=== PATIENT | female | born 1985 | race African-American/Black ===

== ENCOUNTER → 2017-03-26 | Outpatient (CLI) | payer OTHER ==
--- NOTE | 2017-03-26 15:25 | NM ---
EXAMINATION TYPE: NM bone scan whole body DATE OF EXAM: 03/26/2017 COMPARISON: Chest radiograph dated 04/17/2015 and thoracic as well as lumbar radiographs of 5. HISTORY: Fibromyalgia with pain in the chest, shoulders and lower back. Prior left lower extremity fr acture 7 years ago. Delayed whole-body scanning was performed following the injection of 26.4 mCi Tc 99m MDP. Images acq uired 3.25 hours post injection. FINDINGS: Focal radiotracer uptake is seen within the left tarsal bones. No other suspicious localized radiotra cer uptake is appreciated to suggest neoplastic or localized inflammatory process. Symmetric mild rad iotracer accumulation is seen within the knees, femoral acetabular joints, and glenohumeral joints wh ich may relate to early arthropathy. IMPRESSION: 1. Focal radiotracer uptake within the left tarsal bones which may relate to early arthropathy althou gh fracture or osseous lesion are possible and correlation with left foot radiographs are recommended . 2. Mild symmetric uptake within the femoral acetabular joints, glenohumeral joints and knees which ma y relate to early mild arthropathy.
[2017-03-26 15:54] LABS: CH 32.8; HCT 43.6 % (34.0-46.0); HDW 2.21; HGB 14.1 gm/dL (11.4-16.0); MCH 32.4 pg (25.0-35.0); MCHC 32.4 g/dL (31.0-37.0); MCV 99.9 fL (80.0-100.0); RBC 4.36 m/uL (3.80-5.40); RDW 12.4 % (11.5-15.5); WBC 7.9 k/uL (3.8-10.6)
[2017-03-26 16:15] LABS: ALT 36 U/L (9-52); AST 17 U/L (14-36); Alkaline Phosphatase 89 U/L (38-126); Anion Gap 9 mmol/L; Blood Urea Nitrogen 9 mg/dL (7-17); C Reactive Protein 7.7 mg/L (<10.0); Calcium 9.6 mg/dL (8.4-10.2); Carbon Dioxide 22 mmol/L (22-30); Chloride 108 mmol/L (98-107); Glucose 110 mg/dL (74-99); Non-African American GFR(MDRD) >60 (>60 ml/min/1.73 sqM); Sodium 139 mmol/L (137-145); Total Bilirubin 0.7 mg/dL (0.2-1.3); Total Protein 6.8 g/dL (6.3-8.2)
[2017-03-26 16:16] LABS: Rheumatoid Factor, Qnt <9 IU/mL (<12)
[2017-03-26 18:36] LABS: Erythrocyte Sedimentation Rate 8 mm/hr (0-20)
[2017-03-27 03:43] LABS: ANA w/Reflex to Titer NEGATIVE (NEGATIVE); Cyclic Citrull Pep IgG Unit <0.5 U/mL; Cyclic Citrullinated Pep IgG NEGATIVE (NEGATIVE)
== END | disposition home or self-care (01) ==
LOC: RADNMMAIN 11:00
PROVIDERS: ATTEND Physical Medicine & Rehabilitation
DX: R94.8 Abnormal results of function studies of other organs and systems (principal); M79.7 Fibromyalgia; M13.0 Polyarthritis, unspecified
CPT/HCPCS: 80053; 85652; 84443; 85027; 86140; 86431; 86038; 86200; 78306; 36415; A9503

== ENCOUNTER 2018-03-14 22:35 | Observation (INO) | payer OTHER ==
[2018-03-14] MEDS ORDERED: SODIUM CHLORIDE 0.9% 1,000 ML IV STA (22:50)
[2018-03-14 23:04] LABS: Basophils % (A) 0 %; Eosinophils # (A) 0.3 k/uL (0-0.7); Eosinophils % (A) 2 %; HCT 40.9 % (34.0-46.0); HGB 13.5 gm/dL (11.4-16.0); Lymphocytes # (A) 1.3 k/uL (1.0-4.8); Lymphocytes % (A) 10 %; MCH 32.1 pg (25.0-35.0); MCV 97.4 fL (80.0-100.0); Mean Platelet Volume 7.9; Monocytes # (A) 0.9 k/uL (0-1.0); Monocytes % (A) 7 %; Neutrophils # (A) 10.1 k/uL (1.3-7.7); Neutrophils % (A) 79 %; Platelet Count 208 k/uL (150-450); RDW 11.6 % (11.5-15.5); WBC 12.8 k/uL (3.8-10.6)
[2018-03-14] MEDS ORDERED: KETOROLAC 30 MG/ML 1 ML VIAL IVP STA (23:13)
[2018-03-14] MEDS ORDERED: ONDANSETRON 4 MG/2 ML VIAL IVP STA (23:13)
[2018-03-14 23:15] LABS: Albumin 3.8 g/dL (3.5-5.0); Calcium 9.5 mg/dL (8.4-10.2); Potassium 4.1 mmol/L (3.5-5.1); Total Bilirubin 0.9 mg/dL (0.2-1.3); Total Protein 6.9 g/dL (6.3-8.2)
[2018-03-15] MEDS ORDERED: SODIUM CHLORIDE 0.9% 1,000 ML IV STA (00:12)
[2018-03-15 00:14] LABS: Appearance,Urine Cloudy (Clear); Bacteria,Urine Rare /hpf; Bilirubin,Urine Negative (Negative); Blood,Urine Negative (Negative); Color,Urine Yellow; Glucose,Urine (UA) Negative (Negative); Ketones,Urine Negative (Negative); Leukocyte Esterase,Urine Small (Negative); Mucus,Urine Rare /hpf; Nitrite,Urine Negative (Negative); PH, Urine 5.5 (5.0-8.0); Protein,Urine Negative (Negative); RBC,Urine 2 /hpf (0-5); Specific Gravity,Urine 1.006 (1.001-1.035); Squamous Epithelial Cell,Urine 4 /hpf (0-4); Urobilinogen,Urine <2.0 mg/dL (<2.0); WBC,Urine 5 /hpf (0-5)
--- NOTE | 2018-03-15 01:06 | XR ---
EXAMINATION TYPE: XR abdomen 2V DATE OF EXAM: 03/15/2018 COMPARISON: 02/25/2014 HISTORY: Right upper quadrant pain TECHNIQUE: 3 views FINDINGS: Bowel gas pattern is normal. There is no sign of intestinal obstruction or pneumoperitoneum . Fecal pattern is normal. There are no pathologic calcifications. IMPRESSION: Nonacute abdomen. No change.
[2018-03-15] MEDS ORDERED: KETOROLAC 30 MG/ML 1 ML VIAL IM STA (01:15)
[2018-03-15] MEDS ORDERED: MORPHINE SULFATE 4 MG/ML SYRINGE IVP STA (01:26)
[2018-03-15] MEDS ORDERED: NALOXONE 0.4 MG/ML 1 ML VIAL IV PRN (01:40)
[2018-03-15] MEDS ORDERED: ONDANSETRON 4 MG/2 ML VIAL IVP PRN (01:40)
[2018-03-15] MEDS ORDERED: MORPHINE SULFATE 4 MG/ML SYRINGE IV PRN (01:40)
--- NOTE | 2018-03-15 01:56 | ED ---
General Adult HPI - General Source: patient, RN notes reviewed Mode of arrival: wheelchair Limitations: no limitations <Sae Eng - Last Filed: 03/15/18 01:47> <Blayne Sinha - Last Filed: 03/24/18 08:13> - General Chief complaint: Abdominal Pain Stated complaint: Lightheaded, Abdominal Pain Time Seen by Provider: 03/14/18 22:40 - History of Present Illness Initial comments: 32-year-old female presents to the emergency department for a chief complaint of left lower quadrant pain 2 days. Patient states she was seen at [facility] yesterday for this. She states she had a CAT scan done and was told she had gallstones and diverticulitis. Patient states pain has worsened somewhat today. She states she just had a normal bowel movement today without any blood. Patient denies any fevers or chills. Patient states the pain as a sharp constant pain in the left lower quadrant. Patient denies pain in that upper abdomen or chest. Patient states she has vomited 5 times today and is unable to keep down water. She states she has been able to keep down ice chips. She states she tried to eat some chicken broth today as well and did keep that down. Patient denies any pain or burning with urination. Patient denies any possibility of or concern for STD.Patient has no other complaints at this time including shortness of breath, chest pain, headache, or visual changes. (Sae Eng) - Related Data Previous Rx's Medication Instructions Recorded Ciprofloxacin HCl [Cipro] 500 mg PO Q12HR #10 tablet 03/16/18 metroNIDAZOLE [Flagyl] 500 mg PO BID #10 tab 03/16/18 Allergies Allergy/AdvReac Type Severity Reaction Status Date / Time Penicillins Allergy Anaphylaxis Verified 03/15/18 11:57 Review of Systems ROS Other: All systems not noted in ROS Statement are negative. <Sae Eng - Last Filed: 03/15/18 01:47> ROS Other: All systems not noted in ROS Statement are negative. <Blayne Sinha - Last Filed: 03/24/18 08:13> ROS Statement: Those systems with pertinent positive or pertinent negative responses have been documented in the HPI. Past Medical History Past Medical History: Asthma, Fibromyalgia History of Any Multi-Drug Resistant Organisms: None Reported Past Surgical History: No Surgical Hx Reported Past Psychological History: No Psychological Hx Reported Smoking Status: Current every day smoker Past Alcohol Use History: None Reported Past Drug Use History: Marijuana <Velasquez,Sae P - Last Filed: 03/15/18 01:47> - Past Family History Mother Additional Family Medical History / Comment(s): Kidney stones <MarysabinaBlayne - Last Filed: 03/24/18 08:13> General Exam Limitations: no limitations General appearance: alert, in no apparent distress Head exam: Present: atraumatic, normocephalic, normal inspection Eye exam: Present: normal appearance, PERRL, EOMI. Absent: scleral icterus, conjunctival injection, periorbital swelling, periorbital tenderness ENT exam: Present: normal exam, normal oropharynx, mucous membranes moist, TM's normal bilaterally, normal external ear exam Neck exam: Present: normal inspection, full ROM. Absent: tenderness, meningismus, lymphadenopathy Respiratory exam: Present: normal lung sounds bilaterally, respiratory distress. Absent: wheezes, rales, rhonchi, stridor Cardiovascular Exam: Present: regular rate, normal rhythm, normal heart sounds. Absent: systolic murmur, diastolic murmur, rubs, gallop, clicks GI/Abdominal exam: Present: soft, tenderness (Patient has left lower quadrant tenderness with guarding. No right lower quadrant tenderness or left or right upper quadrant tenderness. No epigastric tenderness.), guarding (Mild guarding in left lower quadrant), normal bowel sounds. Absent: distended, rebound, rigid Extremities exam: Present: full ROM (Patient moving all extremities without difficulty) Neurological exam: Present: alert, oriented X3, CN II-XII intact Psychiatric exam: Present: normal affect, normal mood, anxious <Sae Eng - Last Filed: 03/15/18 01:47> Vital Signs 03/14/18 03/15/18 03/15/18 22:38 00:34 01:51 Temperature 98.5 F 97.6 F Pulse Rate 90 65 72 Respiratory 18 18 17 Rate Blood Pressure 118/63 126/60 118/71 O2 Sat by Pulse 98 98 99 Oximetry 03/15/18 02:50 Temperature Pulse Rate Respiratory 18 Rate Blood Pressure O2 Sat by Pulse Oximetry Medical Decision Making - Lab Data Result diagrams: 03/14/18 22:59 03/14/18 22:59 <Sae Eng - Last Filed: 03/15/18 01:47> - Lab Data Result diagrams: 03/16/18 07:00 03/16/18 07:00 <Blayne Sinha - Last Filed: 03/24/18 08:13> - Medical Decision Making 32-year-old female presents to the emergency department for a chief complaint of left lower quadrant pain 2 days. Patient states she was seen at [facility] yesterday and diagnosed with diverticulitis and gallstones. Patient states pain worsened somewhat today. On exam patient has left lower quadrant tenderness with mild guarding. No abdominal tenderness noted otherwise. CT results were faxed from [facility] and impression read "inflammatory changes around the descending colon with diverticula. This is likely related to acute diverticulitis with mild free fluid in the paracolic gutter and also in the pelvis. Numerous gallstones noted." X-ray was obtained today to exclude any free air in the abdomen and results show a nonacute abdomen with no sign of obstruction or pneumoperitoneum. Patient does have a white count of 12.8. ESR 37 and CRP 73. Creatinine 1.4. Past baseline shows a creatinine at 0.70 which is consistent with acute kidney injury. Patient will be admitted to observation for IV fluids and IV antibiotics as she states she is unable to keep down liquids. Patient was given 2 L in the emergency department and started on Flagyl and Levaquin. (Sae Eng) I saw this patient in conjunction with the physician library media assistant. I performed independent history and physical exam. Agree with case management. (Blayne Sinha) - Lab Data Lab Results 03/14/18 03/14/18 03/14/18 Range/Units 22:59 22:59 23:33 WBC 12.8 H (3.8-10.6) k/uL RBC 4.20 (3.80-5.40) m/uL Hgb 13.5 (11.4-16.0) gm/dL Hct 40.9 (34.0-46.0) % MCV 97.4 (80.0-100.0) fL MCH 32.1 (25.0-35.0) pg MCHC 33.0 (31.0-37.0) g/dL RDW 11.6 (11.5-15.5) % Plt Count 208 (150-450) k/uL Neutrophils % 79 % Lymphocytes % 10 % Monocytes % 7 % Eosinophils % 2 % Basophils % 0 % Neutrophils # 10.1 H (1.3-7.7) k/uL Lymphocytes # 1.3 (1.0-4.8) k/uL Monocytes # 0.9 (0-1.0) k/uL Eosinophils # 0.3 (0-0.7) k/uL Basophils # 0.0 (0-0.2) k/uL ESR (0-20) mm/hr Sodium 139 (137-145) mmol/L Potassium 4.1 (3.5-5.1) mmol/L Chloride 106 (98-107) mmol/L Carbon Dioxide 25 (22-30) mmol/L Anion Gap 8 mmol/L BUN 13 (7-17) mg/dL Creatinine 1.40 H (0.52-1.04) mg/dL Est GFR (CKD-EPI)AfAm 58 (>60 ml/min/1.73 sqM) Est GFR (CKD-EPI)NonAf 50 (>60 ml/min/1.73 sqM) Glucose 113 H (74-99) mg/dL Calcium 9.5 (8.4-10.2) mg/dL Total Bilirubin 0.9 (0.2-1.3) mg/dL AST 47 H (14-36) U/L ALT 52 (9-52) U/L Alkaline Phosphatase 97 (38-126) U/L C-Reactive Protein (<10.0) mg/L Total Protein 6.9 (6.3-8.2) g/dL Albumin 3.8 (3.5-5.0) g/dL Amylase 54 (30-110) U/L Lipase 60 (23-300) U/L Urine Color Urine Appearance (Clear) Urine pH (5.0-8.0) Ur Specific [place] (1.001-1.035) Urine Protein (Negative) Urine Glucose (UA) (Negative) Urine Ketones (Negative) Urine Blood (Negative) Urine Nitrite (Negative) Urine Bilirubin (Negative) Urine Urobilinogen (<2.0) mg/dL Ur Leukocyte Esterase (Negative) Urine RBC (0-5) /hpf Urine WBC (0-5) /hpf Ur Squamous Epith Cells (0-4) /hpf Urine Bacteria (None) /hpf Urine Mucus (None) /hpf Urine HCG, Qual Not Detected (Not Detectd) 03/14/18 03/14/18 03/15/18 Range/Units 23:33 23:48 00:21 WBC (3.8-10.6) k/uL RBC (3.80-5.40) m/uL Hgb (11.4-16.0) gm/dL Hct (34.0-46.0) % MCV (80.0-100.0) fL MCH (25.0-35.0) pg MCHC (31.0-37.0) g/dL RDW (11.5-15.5) % Plt Count (150-450) k/uL Neutrophils % % Lymphocytes % % Monocytes % % Eosinophils % % Basophils % % Neutrophils # (1.3-7.7) k/uL Lymphocytes # (1.0-4.8) k/uL Monocytes # (0-1.0) k/uL Eosinophils # (0-0.7) k/uL Basophils # (0-0.2) k/uL ESR 37 H (0-20) mm/hr Sodium (137-145) mmol/L Potassium (3.5-5.1) mmol/L Chloride (98-107) mmol/L Carbon Dioxide (22-30) mmol/L Anion Gap mmol/L BUN (7-17) mg/dL Creatinine (0.52-1.04) mg/dL Est GFR (CKD-EPI)AfAm (>60 ml/min/1.73 sqM) Est GFR (CKD-EPI)NonAf (>60 ml/min/1.73 sqM) Glucose (74-99) mg/dL Calcium (8.4-10.2) mg/dL Total Bilirubin (0.2-1.3) mg/dL AST (14-36) U/L ALT (9-52) U/L Alkaline Phosphatase (38-126) U/L C-Reactive Protein 73.7 H (<10.0) mg/L Total Protein (6.3-8.2) g/dL Albumin (3.5-5.0) g/dL Amylase (30-110) U/L Lipase (23-300) U/L Urine Color Yellow Urine Appearance Cloudy H (Clear) Urine pH 5.5 (5.0-8.0) Ur Specific [place] 1.006 (1.001-1.035) Urine Protein Negative (Negative) Urine Glucose (UA) Negative (Negative) Urine Ketones Negative (Negative) Urine Blood Negative (Negative) Urine Nitrite Negative (Negative) Urine Bilirubin Negative (Negative) Urine Urobilinogen <2.0 (<2.0) mg/dL Ur Leukocyte Esterase Small H (Negative) Urine RBC 2 (0-5) /hpf Urine WBC 5 (0-5) /hpf Ur Squamous Epith Cells 4 (0-4) /hpf Urine Bacteria Rare H (None) /hpf Urine Mucus Rare H (None) /hpf Urine HCG, Qual (Not Detectd) Disposition Time of Disposition: 01:56 <Sae Eng - Last Filed: 03/15/18 01:47> <Blayne Sinha - Last Filed: 03/24/18 08:13> Clinical Impression: Diverticulitis Disposition: ADMITTED IP TO THIS HOSP Condition: Poor
[2018-03-15] MEDS: SODIUM CHLORIDE 0.9% 1,000 ML IV SCH ×3 (01:58→20:59)
[2018-03-15] MEDS: metroNIDAZOLE-NS PMX 500 MG in SALINE 1 100ML.BAG IVPB SCH ×3 (02:01→18:19)
[2018-03-15 04:32] VITALS: RESP 16
[2018-03-15 05:18] VITALS: BMI 35.5
[2018-03-15] MEDS ORDERED: IPRATROPIUM-ALBUTEROL 3 ML NEB INHALATION PRN (06:23)
--- NOTE | 2018-03-15 06:43 | P.HPIM ---
History of Present Illness H&P Date: 03/15/18 Chief Complaint: Abd pain , nausea vomiting 32 year old female with history of asthma and kidney stones. patient presented with 2 day history of left lower quadrant abd pain, described as sharp constant pain, non radiating , associated with repeated vomiting and unable to keep anything down. The pain has worsened today to 10/10 in severity and associated with chills. patient could not keep her prescribed medications down (was on ABx and bentyl) Patient was seen at a different facility yesterday where she was evaluated thoroughly including an abd CT, which suggested acute diverticulitis and gall stones. she has history of kidney stone in the past. CT from [facility] showed inflammatory changes in the descending colon with diverticuli. in the ED today , abd xray was unremarkable otherwise, labs suggested ELVIRA, and leukocytosis. Patient has history of mild intermittent asthma, denies any headache chest pain trouble breathing denies any GI bleeding, patient had regular bowel movements with no blood. Denies any vaginal discharge. Denies any burning upon urination denies any hematuria. Denies any focal neurologic deficits. Review of Systems Pertinent positives as noted in HPI. All other systems were reviewed and are negative Past Medical History Past Medical History: Asthma, Fibromyalgia Additional Past Medical History / Comment(s): kidney stone History of Any Multi-Drug Resistant Organisms: None Reported Past Surgical History: No Surgical Hx Reported Past Psychological History: ADD/ADHD Smoking Status: Never smoker Past Alcohol Use History: None Reported Past Drug Use History: Marijuana - Past Family History Mother Additional Family Medical History / Comment(s): Kidney stones Medications and Allergies Home Medications Medication Instructions Recorded Confirmed Type Hydrocodone/Acetaminophen [[place] 1 tab PO Q4H PRN 12/27/13 03/15/18 History 10-325] Ibuprofen [Motrin] 800 mg PO Q6HR PRN 04/17/15 03/15/18 History Albuterol Inhaler [Ventolin 1 - 2 puff INHALATION RT-Q6H PRN 10/16/15 03/15/18 History Inhaler] Sulfamethox-Tmp 800-160Mg [Bactrim 1 each PO Q12HR #20 tab 10/16/15 03/15/18 Rx Ds] methylPREDNISolone [Medrol Dose 4 mg PO DIRECTED #1 pack 10/16/15 03/15/18 Rx Pack] Allergies Allergy/AdvReac Type Severity Reaction Status Date / Time Penicillins Allergy Anaphylaxis Verified 03/15/18 02:53 Physical Exam Vitals: Vital Signs Temp Pulse Pulse Resp BP BP Pulse Ox 03/15/18 05:08 97.8 F 75 16 103/70 97 03/15/18 04:29 97.8 F 65 16 103/70 98 03/15/18 03:40 97.2 F L 85 18 127/66 97 03/15/18 02:50 18 03/15/18 01:51 97.6 F 72 17 118/71 99 03/15/18 00:34 65 18 126/60 98 03/14/18 22:38 98.5 F 90 18 118/63 98 Intake and Output 03/14/18 03/14/18 03/15/18 14:59 22:59 06:59 Other: # Voids 1 Weight 99.79 kg 99.79 kg Constitutional: No acute distress, conversant, pleasant, obese Eyes: Anicteric sclerae, moist conjunctiva, no lid-lag Pupils equal round reactive to light ENMT: NC/AT Oropharynx clear, no erythema, exudates Neck: Supple, FROM, no masses, or JVD No carotid bruits No thyromegaly Lungs: Clear to auscultation Clear to percussion Normal respiratory effort, no accessory muscle use Cardiovascular: Heart regular in rate and rhythm, No murmurs, gallops, or rubs No peripheral edema Abdominal: Soft, tenderness to palpation over the left lower quadrant with voluntary guarding, positive rebound tenderness, tenderness to percussion , no rigidity Abdomen moving with respiration Normoactive bowel sounds No hepatomegaly, No splenomegaly No palpable mass No abdominal wall hernia noted Skin: Normal temperature, tone, texture, turgor No induration No subcutaneous nodules No rash, lesions No ulcers Extremities: No digital cyanosis No clubbing Pedal pulses intact and symmetrical Radial pulses intact and symmetrical No calf tenderness Psychiatric: Alert and oriented to person, place and time Appropriate affect fair judgment Neuro Muscles Strength 5/5 in all 4 extremities Sensation to light touch grossly present throughout Cranial nerves II-XII grossly intact No focal sensory deficits Lymphatics: no palpable cervical or supraclavicular , or inguinal lymph nodes Results CBC & Chem 7: 03/14/18 22:59 03/14/18 22:59 Labs: Abnormal Lab Results - Last 24 Hours (Table) 03/14/18 03/14/18 03/14/18 Range/Units 22:59 22:59 23:33 WBC 12.8 H (3.8-10.6) k/uL Neutrophils # 10.1 H (1.3-7.7) k/uL ESR (0-20) mm/hr Creatinine 1.40 H (0.52-1.04) mg/dL Glucose 113 H (74-99) mg/dL AST 47 H (14-36) U/L C-Reactive Protein (<10.0) mg/L Urine Appearance Cloudy H (Clear) Ur Leukocyte Esterase Small H (Negative) Urine Bacteria Rare H (None) /hpf Urine Mucus Rare H (None) /hpf 03/14/18 03/15/18 Range/Units 23:48 00:21 WBC (3.8-10.6) k/uL Neutrophils # (1.3-7.7) k/uL ESR 37 H (0-20) mm/hr Creatinine (0.52-1.04) mg/dL Glucose (74-99) mg/dL AST (14-36) U/L C-Reactive Protein 73.7 H (<10.0) mg/L Urine Appearance (Clear) Ur Leukocyte Esterase (Negative) Urine Bacteria (None) /hpf Urine Mucus (None) /hpf Thrombosis Risk Factor Assmnt - Choose All That Apply Any of the Below Risk Factors Present?: No Other Risk Factors: No Thrombosis Risk Factor Assessment Level: Very Low Risk Assessment and Plan Assessment: 32-year-old female with history of mild intermittent asthma kidney stones, admitted under observation with anticipated length of stay of less than 48 hours due to acute diverticulitis failed outpatient therapy associated with intractable nausea and vomiting Plan: Acute diverticulitis failed outpatient therapy intractable nausea and vomiting IV antibiotics IV fluid hydration Pain control with morphine Nothing by mouth, okay for sips of water and popsicles Acute kidney injury, most likely secondary to prerenal ATN from dehydration and poor by mouth intake Avoid nephrotoxic meds Discontinue NSAIDs IV fluid hydration Monitor renal function and urine output Mild intermittent asthma DuoNeb's when necessary Obesity Counseled for lifestyle changes and weight loss DVT prophylaxis Heparin subcu 3 times a day Surrogate decision-maker: Patient mother CODE STATUS: Full code Discussed with: Patient, ER, RN Anticipated discharge: <[address]: home A total of 50 minutes was spent on the care of this complex patient more than 50 % of the time was spent in counseling and care coordination.
[2018-03-15] MEDS: LEVOFLOXACIN 750MG-D5W PMX 750 MG in DEXTROSE/WATER 1 150ML.BAG IVPB SCH (08:00)
[2018-03-15] MEDS: HEPARIN SODIUM,PORCINE 5,000 UNIT/ML 1 ML VIAL SQ SCH ×2 (08:03→15:52)
--- NOTE | 2018-03-15 09:46 | P.PN ---
Progress Note - Text Progress Note Date: 03/15/18 Hospitalist interval note: Patients first episode of diverticulitis, Tried outpatient antibiotics which did not improve her symptoms and presented here. Still with abdominal pain, no nausea, no diarrhea. No chest pain or shortness of breath. GEN: ill appearing, mild distress, obese CV: S1S2 reg, no edema Lungs: CTA b/l, no wheeze Abdomen: Soft TTP RUQ, RLQ, LLQ 1. acute diverticulitis failed outpatient treatment- IVF, abx, pain control. For full note please see H and P by Dr. Hsu
[2018-03-15] MEDS: METOCLOPRAMIDE 5 MG/ML 2 ML VIAL IVP PRN ×2 (10:32→20:51)
[2018-03-15] MEDS: HYDROcodone/APAP 5-325MG 1 EACH TAB PO PRN ×2 (12:20→18:23)
[2018-03-15] MEDS: KETOROLAC 30 MG/ML 1 ML VIAL IVP PRN (20:52)
[2018-03-16] MEDS: HEPARIN SODIUM,PORCINE 5,000 UNIT/ML 1 ML VIAL SQ SCH ×2 (01:18→08:54)
[2018-03-16] MEDS ORDERED: ONDANSETRON ODT 4 MG TAB PO PRN (01:56)
[2018-03-16] MEDS ORDERED: ONDANSETRON 4 MG/2 ML VIAL IVP PRN (01:57)
[2018-03-16] MEDS: KETOROLAC 30 MG/ML 1 ML VIAL IVP PRN (02:08)
[2018-03-16] MEDS: metroNIDAZOLE-NS PMX 500 MG in SALINE 1 100ML.BAG IVPB SCH ×2 (02:10→11:23)
[2018-03-16] MEDS: SODIUM CHLORIDE 0.9% 1,000 ML IV SCH ×2 (02:13→11:24)
[2018-03-16 07:20] VITALS: BP 117/76; PULSE 65; TEMP 97.9
[2018-03-16 07:40] LABS: HCT 37.9 % (34.0-46.0); MCH 31.3 pg (25.0-35.0); MCHC 31.7 g/dL (31.0-37.0); MCV 98.7 fL (80.0-100.0); Mean Platelet Volume 7.9; Platelet Count 218 k/uL (150-450); RBC 3.84 m/uL (3.80-5.40); RDW 11.5 % (11.5-15.5); WBC 7.5 k/uL (3.8-10.6)
[2018-03-16 08:12] LABS: Calcium 8.5 mg/dL (8.4-10.2); Potassium 4.1 mmol/L (3.5-5.1)
[2018-03-16] MEDS: LEVOFLOXACIN 750MG-D5W PMX 750 MG in DEXTROSE/WATER 1 150ML.BAG IVPB SCH (08:54)
== END 2018-03-16 14:38 | disposition home or self-care (01) ==
LOC: EC 22:35 → INTOOBSV 03-15 02:37 → 3SUR 03-15 02:37 → UNDODISIN 03-16 14:38
PROVIDERS: ADMIT Internal Medicine; ATTEND Internal Medicine
DX: K57.32 Diverticulitis of large intestine without perforation or abscess without bleeding (principal); N17.0 Acute kidney failure with tubular necrosis; K80.20 Calculus of gallbladder without cholecystitis without obstruction; M79.7 Fibromyalgia; Z87.442 Personal history of urinary calculi; F90.9 Attention-deficit hyperactivity disorder, unspecified type; E86.0 Dehydration; J45.20 Mild intermittent asthma, uncomplicated; E66.9 Obesity, unspecified; Z68.35 Body mass index [BMI] 35.0-35.9, adult; Z88.0 Allergy status to penicillin
CPT/HCPCS: 96361 ×3; 96376 ×2; 96366 ×2; 96367; 96372 ×2; 96375 ×3; 96365; 99285; 36415 ×2; 94640; 80053; 80048; 85652; 82150; 83690; 85025; 85027; 86140; 81001; 81025; 87040; 87086; 74019; G0378 ×2; J2270; J1644 ×2; J2765; J2405; J1885 ×2; J1956 ×2

== ENCOUNTER 2019-09-25 09:08 | Emergency (ER) | payer OTHER ==
[2019-09-25] MEDS ORDERED: ONDANSETRON 4 MG/2 ML VIAL IVP STA (09:31)
[2019-09-25] MEDS ORDERED: SODIUM CHLORIDE 0.9% 2,000 ML IV STA (09:31)
[2019-09-25] MEDS ORDERED: KETOROLAC 30 MG/ML 1 ML VIAL IVP STA (09:31)
--- NOTE | 2019-09-25 09:43 | XR ---
EXAMINATION TYPE: XR KUB , 2 VIEWS DATE OF EXAM ORDERED: 09/25/2019 HISTORY: abdominal pain. COMPARISON: Previous study dated 02/25/2014. FINDINGS: Lung bases are clear. Within the abdomen, there are numerous air-fluid levels. There is no evidence of obstruction or free air. No unusual calcifications are seen. IMPRESSION: FINDINGS MOST CONSISTENT WITH MILD, GENERALIZED ILEUS.
--- NOTE | 2019-09-25 09:43 | ED ---
General Adult HPI - General Chief complaint: Nausea/Vomiting/Diarrhea Stated complaint: POSSIBLE FEVER, DIZZY, VOMITING, NAUSEA Time Seen by Provider: 09/25/19 09:26 Source: patient, RN notes reviewed Mode of arrival: ambulatory Limitations: no limitations - History of Present Illness Initial comments: This a 34-year-old female presents emergency Department chief complaint left lower quadrant abdominal pain, nausea vomiting. Patient states that her s ymptoms started 2 days ago. Patient states that it was a sudden onset of severe pain. She does admit that her rates her back and has a history kidney stones. She denies any dysuria no hematuria denies any chance . Patient states that her girlfriend started with nausea vomiting a day prior. Patient reports fever at home no recent Tylenol Motrin. Patient denies any chest pain, shortne ss of breath. She states she had slight loose stool but nothing significant denies any melena or hematochezia. - Related Data Previous Rx's Medication Instructions Recorded Ciprofloxacin HCl [Cipro] 500 mg PO Q12HR #10 tablet 03/16/18 metroNIDAZOLE [Flagyl] 500 mg PO BID #10 tab 03/16/18 Ondansetron Odt [Zofran Odt] 4 mg PO Q8HR PRN #14 tab 09/25/19 Allergies Allergy/AdvReac Type Severity Reaction Status Date / Time Penicillins Allergy Anaphylaxis Verified 09/25/19 09:17 Review of Systems ROS Statement: Those systems with pertinent positive or pertinent negative responses have been documented in the HPI. ROS Other: All systems not noted in ROS Statement are negative. Past Medical History Past Medical History: Asthma, Fibromyalgia Additional Past Medical History / Comment(s): kidney stone History of Any Multi-Drug Resistant Organisms: None Reported Past Surgical History: No Surgical Hx Reported Past Psychological History: ADD/ADHD Smoking Status: Never smoker Past Alcohol Use History: None Reported Past Drug Use History: Marijuana - Past Family History Mother Additional Family Medical History / Comment(s): Kidney stones General Exam Limitations: no limitations General appearance: alert, in no apparent distress Head exam: Present: atraumatic, normocephalic, normal inspection Eye exam: Present: normal appearance, PERRL, EOMI. Absent: scleral icterus, conjunctival injection, periorbital swelling Neck exam: Present: normal inspection. Absent: tenderness, meningismus, lymphadenopathy Respiratory exam: Present: normal lung sounds bilaterally. Absent: respiratory distress, wheezes, rales, rhonchi, stridor Cardiovascular Exam: Present: regular rate, normal rhythm, normal heart sounds. Absent: systolic murmur, diastolic murmur, rubs, gallop, clicks GI/Abdominal exam: Present: soft, tenderness (Mild left-sided abdominal tenderness), normal bowel sounds. Absent: distended, guarding, rebound, rigid Back exam: Present: CVA tenderness (L). Absent: CVA tenderness (R) Neurological exam: Present: alert, oriented X3, CN II-XII intact Skin exam: Present: warm, dry, intact, normal color. Absent: rash Course Vital Signs 09/25/19 09:15 Temperature 99.7 F H Pulse Rate 79 Respiratory 18 Rate Blood Pressure 127/91 O2 Sat by Pulse 98 Oximetry Medical Decision Making - Medical Decision Making 34-year-old female presented for abdominal pain nausea vomiting. Patient's girlfriend had similar symptoms. Patient did have noted fever left-sided abdominal pain. Patient CT is negative for acute findings. Patient will be discharged in stable condition she is advised that she needs to self quarantine for 14 days. - Lab Data Result diagrams: 09/25/19 10:24 09/25/19 09:55 Lab Results 09/25/19 09/25/19 09/25/19 Range/Units 09:55 09:55 10:24 WBC 7.8 (3.8-10.6) k/uL RBC 4.38 (3.80-5.40) m/uL Hgb 13.9 (11.4-16.0) gm/dL Hct 42.6 (34.0-46.0) % MCV 97.1 (80.0-100.0) fL MCH 31.6 (25.0-35.0) pg MCHC 32.6 (31.0-37.0) g/dL RDW 11.6 (11.5-15.5) % Plt Count 257 (150-450) k/uL Neutrophils % 72 % Lymphocytes % 16 % Monocytes % 7 % Eosinophils % 3 % Basophils % 0 % Neutrophils # 5.6 (1.3-7.7) k/uL Lymphocytes # 1.2 (1.0-4.8) k/uL Monocytes # 0.5 (0-1.0) k/uL Eosinophils # 0.3 (0-0.7) k/uL Basophils # 0.0 (0-0.2) k/uL Sodium 135 L (137-145) mmol/L Potassium 4.3 (3.5-5.1) mmol/L Chloride 106 (98-107) mmol/L Carbon Dioxide 23 (22-30) mmol/L Anion Gap 6 mmol/L BUN 7 (7-17) mg/dL Creatinine 0.71 (0.52-1.04) mg/dL Est GFR (CKD-EPI)AfAm >90 (>60 ml/min/1.73 sqM) Est GFR (CKD-EPI)NonAf >90 (>60 ml/min/1.73 sqM) Glucose 106 H (74-99) mg/dL Plasma Lactic Acid [place] 1.1 (0.7-2.0) mmol/L Calcium 9.1 (8.4-10.2) mg/dL Total Bilirubin 1.9 H (0.2-1.3) mg/dL AST 32 (14-36) U/L ALT 27 (4-34) U/L Alkaline Phosphatase 90 (38-126) U/L Total Protein 7.1 (6.3-8.2) g/dL Albumin 4.0 (3.5-5.0) g/dL Amylase 53 (30-110) U/L Lipase 63 (23-300) U/L Urine Color Urine Appearance (Clear) Urine pH (5.0-8.0) Ur Specific [place] (1.001-1.035) Urine Protein (Negative) Urine Glucose (UA) (Negative) Urine Ketones (Negative) Urine Blood (Negative) Urine Nitrite (Negative) Urine Bilirubin (Negative) Urine Urobilinogen (<2.0) mg/dL Ur Leukocyte Esterase (Negative) 09/25/19 Range/Units 10:24 WBC (3.8-10.6) k/uL RBC (3.80-5.40) m/uL Hgb (11.4-16.0) gm/dL Hct (34.0-46.0) % MCV (80.0-100.0) fL MCH (25.0-35.0) pg MCHC (31.0-37.0) g/dL RDW (11.5-15.5) % Plt Count (150-450) k/uL Neutrophils % % Lymphocytes % % Monocytes % % Eosinophils % % Basophils % % Neutrophils # (1.3-7.7) k/uL Lymphocytes # (1.0-4.8) k/uL Monocytes # (0-1.0) k/uL Eosinophils # (0-0.7) k/uL Basophils # (0-0.2) k/uL Sodium (137-145) mmol/L Potassium (3.5-5.1) mmol/L Chloride (98-107) mmol/L Carbon Dioxide (22-30) mmol/L Anion Gap mmol/L BUN (7-17) mg/dL Creatinine (0.52-1.04) mg/dL Est GFR (CKD-EPI)AfAm (>60 ml/min/1.73 sqM) Est GFR (CKD-EPI)NonAf (>60 ml/min/1.73 sqM) Glucose (74-99) mg/dL Plasma Lactic Acid [place] (0.7-2.0) mmol/L Calcium (8.4-10.2) mg/dL Total Bilirubin (0.2-1.3) mg/dL AST (14-36) U/L ALT (4-34) U/L Alkaline Phosphatase (38-126) U/L Total Protein (6.3-8.2) g/dL Albumin (3.5-5.0) g/dL Amylase (30-110) U/L Lipase (23-300) U/L Urine Color Yellow Urine Appearance Clear (Clear) Urine pH 5.5 (5.0-8.0) Ur Specific [place] 1.027 (1.001-1.035) Urine Protein Trace H (Negative) Urine Glucose (UA) Negative (Negative) Urine Ketones Negative (Negative) Urine Blood Negative (Negative) Urine Nitrite Negative (Negative) Urine Bilirubin Negative (Negative) Urine Urobilinogen 4.0 (<2.0) mg/dL Ur Leukocyte Esterase Negative (Negative) Disposition Clinical Impression: Gastroenteritis Disposition: HOME SELF-CARE Condition: Stable Instructions (If sedation given, give patient instructions): Acute Nausea and Vomiting (ED) Additional Instructions: Please return to the Emergency Department if symptoms worsen or any other jose g rns. You need to self quarantined for 14 days as there is a possibility of COVID 19 Prescriptions: Ondansetron Odt [Zofran Odt] 4 mg PO Q8HR PRN #14 tab PRN Reason: Nausea Is patient prescribed a controlled substance at d/c from ED?: No Referrals: Harlan Weinberg MD [Primary Care Provider] - 1-2 days Time of Disposition: 12:05
[2019-09-25 10:17] LABS: Appearance,Urine Clear (Clear); Bilirubin,Urine Negative (Negative); Blood,Urine Negative (Negative); Color,Urine Yellow; Glucose,Urine (UA) Negative (Negative); Ketones,Urine Negative (Negative); Leukocyte Esterase,Urine Negative (Negative); Nitrite,Urine Negative (Negative); PH, Urine 5.5 (5.0-8.0); Protein,Urine Trace (Negative); Specific Gravity,Urine 1.027 (1.001-1.035)
[2019-09-25 10:23] LABS: ALT 27 U/L (4-34); AST 32 U/L (14-36); African American GFR (CKD) >90 (>60 ml/min/1.73 sqM); Alkaline Phosphatase 90 U/L (38-126); Amylase 53 U/L (30-110); Anion Gap 6 mmol/L; Blood Urea Nitrogen 7 mg/dL (7-17); Calcium 9.1 mg/dL (8.4-10.2); Carbon Dioxide 23 mmol/L (22-30); Chloride 106 mmol/L (98-107); Glucose 106 mg/dL (74-99); Non-African American GFR(CKD) >90 (>60 ml/min/1.73 sqM); Potassium 4.3 mmol/L (3.5-5.1); Sodium 135 mmol/L (137-145); Total Bilirubin 1.9 mg/dL (0.2-1.3); Total Protein 7.1 g/dL (6.3-8.2)
[2019-09-25] MEDS ORDERED: MORPHINE SULFATE 4 MG/ML SYRINGE IVP STA (10:41)
[2019-09-25 11:04] LABS: Basophils % (A) 0 %; Eosinophils # (A) 0.3 k/uL (0-0.7); Eosinophils % (A) 3 %; HCT 42.6 % (34.0-46.0); HGB 13.9 gm/dL (11.4-16.0); Lymphocytes # (A) 1.2 k/uL (1.0-4.8); Lymphocytes % (A) 16 %; MCH 31.6 pg (25.0-35.0); MCHC 32.6 g/dL (31.0-37.0); MCV 97.1 fL (80.0-100.0); Mean Platelet Volume 8.5; Monocytes # (A) 0.5 k/uL (0-1.0); Monocytes % (A) 7 %; Neutrophils # (A) 5.6 k/uL (1.3-7.7); Neutrophils % (A) 72 %; Platelet Count 257 k/uL (150-450); RBC 4.38 m/uL (3.80-5.40); RDW 11.6 % (11.5-15.5); WBC 7.8 k/uL (3.8-10.6)
--- NOTE | 2019-09-25 11:50 | CT ---
EXAMINATION TYPE: CT abdomen pelvis w con DATE OF EXAM: 09/25/2019 REFERENCE: Previous study dated 02/27/2014. HISTORY: fever, LLQ pain HISTORY: Fever and left lower quadrant pain. REFERENCE: NONE CT DLP: 2088.4 mGy Automated exposure control for dose reduction was used. TECHNIQUE: Helical acquisition through the abdomen and pelvis was obtained following the oral ingesti on of without Oral Contrast and following intravenous administration of 100 mL of Isovue 300. The oskar a was reformatted in axial, coronal and sagittal projections. FINDINGS: visualized portions of the lungs are clear. There is no pleural or pericardial fluid. The heart is not enlarged. Within the abdomen, the liver is prominent measuring over 19 cm. This is largely due to a prominent R iedel's lobe. There are multiple gallstones within the gallbladder. The spleen is unremarkable. Both adrenal glands are normal. Both kidneys demonstrate function and appear morphologically normal. The pancreas is unremarkable. There is no significant retroperitoneal, iliac or inguinal adenopathy. The bladder is unremarkable. The uterus is normal. There is follicular change in the left ovary. There is a 6 x 3 x 2.4 cm right a dnexal mass containing mature fat as well as some calcification. This likely represents an ovarian te ratoma. This is very similar appearance to the previous study. There are scattered diverticula within the sigmoid colon without radiographic evidence of diverticuli tis. The appendix is not visualized with certainty. Small bowel loops are normal caliber. There is no free fluid and no free air IMPRESSION: 1. NO ACUTE INFLAMMATORY ABNORMALITY. 2. RIGHT OVARIAN TERATOMA REVISUALIZED. 3. UNCOMPLICATED DIVERTICULOSIS OF THE SIGMOID COLON. 4. CHOLELITHIASIS.
[2019-09-25 12:18] VITALS: BP 136/85; PULSE 95; RESP 16; TEMP 99.1
== END 2019-09-25 12:18 | disposition home or self-care (01) ==
LOC: EC 09:08
DX: K52.9 Noninfective gastroenteritis and colitis, unspecified (principal); R42 Dizziness and giddiness; Z87.442 Personal history of urinary calculi; Z88.0 Allergy status to penicillin
CPT/HCPCS: 36415; 80053; 82150; 83605; 83690; 85025; 81003; 74018; 74177; 99284; 96374; 96375 ×2; 96361 ×2; J2270; J2405; J1885; Q9967

== ENCOUNTER 2019-09-26 13:52 | Emergency (ER) | payer OTHER ==
[2019-09-26 14:02] VITALS: RESP 18
[2019-09-26] MEDS ORDERED: SODIUM CHLORIDE 0.9% 1,000 ML IV STA (14:33)
[2019-09-26 14:46] LABS: Basophils % (A) 0 %; Eosinophils # (A) 0.3 k/uL (0-0.7); Eosinophils % (A) 6 %; HCT 43.2 % (34.0-46.0); HGB 13.8 gm/dL (11.4-16.0); Lymphocytes # (A) 1.1 k/uL (1.0-4.8); Lymphocytes % (A) 24 %; MCH 31.6 pg (25.0-35.0); MCV 98.7 fL (80.0-100.0); Mean Platelet Volume 8.1; Monocytes # (A) 0.3 k/uL (0-1.0); Monocytes % (A) 6 %; Neutrophils # (A) 2.7 k/uL (1.3-7.7); Neutrophils % (A) 60 %; Platelet Count 236 k/uL (150-450); RBC 4.37 m/uL (3.80-5.40); RDW 11.5 % (11.5-15.5); WBC 4.6 k/uL (3.8-10.6)
--- NOTE | 2019-09-26 15:05 | ED ---
General Adult HPI - General Chief complaint: Nausea/Vomiting/Diarrhea Stated complaint: Vomiting Time Seen by Provider: 09/26/19 14:07 Source: patient, RN notes reviewed Mode of arrival: ambulatory Limitations: no limitations - History of Present Illness Initial comments: 34-year-old female with a past medical history of fibromyalgia, asthma, kidney stones presents to the emergency department for a chief nausea vomiting diarrhea. Patient states she has had nausea vomiting diarrhea for the past 3 days. She has had several episodes of diarrhea. Patient states her girlfriend has the exact same symptoms. Patient states she has felt as if she has had fevers over the past couple days. Patient was seen here in the emergency department yesterday as well. She was discharged home with Zofran however states that the taste of the Zofran dissolving makes her vomit. Patient did have a CAT scan yesterday that showed a teratoma about 6 cm on the right ovary. Patient is not having any right lower abdominal pain.Patient has no other complaints at this time including shortness of breath, chest pain, abdominal pain, nausea or vomiting, headache, or visual changes. - Related Data Home Medications Medication Instructions Recorded Confirmed Hydrocodone/Acetaminophen [[place] 1 tab PO QID 09/26/19 09/26/19 10-325] Ondansetron Odt [Zofran Odt] 12 mg PO Q1H PRN 09/26/19 09/26/19 Previous Rx's Medication Instructions Recorded Ondansetron HCl [Zofran] 4 mg PO Q8HR PRN #14 tablet 09/26/19 Allergies Allergy/AdvReac Type Severity Reaction Status Date / Time Penicillins Allergy Anaphylaxis Verified 09/26/19 14:59 Review of Systems ROS Statement: Those systems with pertinent positive or pertinent negative responses have been documented in the HPI. ROS Other: All systems not noted in ROS Statement are negative. Past Medical History Past Medical History: Asthma, Fibromyalgia Additional Past Medical History / Comment(s): kidney stone History of Any Multi-Drug Resistant Organisms: None Reported Past Surgical History: No Surgical Hx Reported Past Psychological History: ADD/ADHD Smoking Status: Never smoker Past Alcohol Use History: None Reported Past Drug Use History: Marijuana - Past Family History Mother Additional Family Medical History / Comment(s): Kidney stones General Exam Limitations: no limitations General appearance: alert, in no apparent distress Head exam: Present: atraumatic, normocephalic, normal inspection Eye exam: Present: normal appearance, PERRL, EOMI. Absent: scleral icterus, conjunctival injection, periorbital swelling ENT exam: Present: normal exam, mucous membranes moist Neck exam: Present: normal inspection, full ROM. Absent: tenderness, meningismus, lymphadenopathy Respiratory exam: Present: normal lung sounds bilaterally. Absent: respiratory distress, wheezes, rales, rhonchi, stridor Cardiovascular Exam: Present: regular rate, normal rhythm, normal heart sounds. Absent: systolic murmur, diastolic murmur, rubs, gallop, clicks GI/Abdominal exam: Present: soft, tenderness (minimal left lower quadrant suprapubic tenderness.), normal bowel sounds. Absent: distended, guarding, rebound, rigid Neurological exam: Present: alert Course Vital Signs 09/26/19 09/26/19 13:58 17:13 Temperature 99.1 F 98.0 F Pulse Rate 79 63 Respiratory 18 18 Rate Blood Pressure 128/88 107/68 O2 Sat by Pulse 99 99 Oximetry Medical Decision Making - Medical Decision Making 34-year-old obese female presents for abdominal pain associated with nausea vomiting diarrhea. This started approximately 3 days ago. Patient's girlfriend has similar symptoms. Patient had a low-grade fever while in the emergency room yesterday at 99.7. States she has had subjective fevers at home. However she has not checked her temperature. She is afebrile here. Vitals are stable. Physical exam initially revealed some lower abdominal tenderness. Blood work was obtained CBC CMP unremarkable. Urinalysis is negative. On reevaluation patient states the epigastric and right upper quadrant pain worsened. Patient did have an elevated bilirubin yesterday and cholelithiasis noted on CAT scan. Therefore ultrasound was ordered of the gallbladder.This did show multiple large gallstones however no free fluid is seen. No dilated duct. Common bile duct is 0.5 cm. No evidence for cholecystitis. She was reevaluated and is currently feeling much better. I did recommend she follow up with surgery for cholelithiasis and stick to a low-fat diet. She will return if she has any worsening symptoms or continued fevers.. She will also follow up with primary care to review CAT scan results including the teratoma. She will return here if she has any worsening symptoms. - Lab Data Result diagrams: 09/26/19 14:27 09/26/19 14:27 Lab Results 09/26/19 09/26/19 09/26/19 Range/Units 14:27 14:27 15:00 WBC 4.6 (3.8-10.6) k/uL RBC 4.37 (3.80-5.40) m/uL Hgb 13.8 (11.4-16.0) gm/dL Hct 43.2 (34.0-46.0) % MCV 98.7 (80.0-100.0) fL MCH 31.6 (25.0-35.0) pg MCHC 32.0 (31.0-37.0) g/dL RDW 11.5 (11.5-15.5) % Plt Count 236 (150-450) k/uL Neutrophils % 60 % Lymphocytes % 24 % Monocytes % 6 % Eosinophils % 6 % Basophils % 0 % Neutrophils # 2.7 (1.3-7.7) k/uL Lymphocytes # 1.1 (1.0-4.8) k/uL Monocytes # 0.3 (0-1.0) k/uL Eosinophils # 0.3 (0-0.7) k/uL Basophils # 0.0 (0-0.2) k/uL Sodium 138 (137-145) mmol/L Potassium 4.1 (3.5-5.1) mmol/L Chloride 108 H (98-107) mmol/L Carbon Dioxide 25 (22-30) mmol/L Anion Gap 5 mmol/L BUN 8 (7-17) mg/dL Creatinine 0.71 (0.52-1.04) mg/dL Est GFR (CKD-EPI)AfAm >90 (>60 ml/min/1.73 sqM) Est GFR (CKD-EPI)NonAf >90 (>60 ml/min/1.73 sqM) Glucose 98 (74-99) mg/dL Calcium 9.1 (8.4-10.2) mg/dL Total Bilirubin 0.7 (0.2-1.3) mg/dL AST 29 (14-36) U/L ALT 30 (4-34) U/L Alkaline Phosphatase 96 (38-126) U/L Total Protein 7.0 (6.3-8.2) g/dL Albumin 3.9 (3.5-5.0) g/dL Amylase 62 (30-110) U/L Lipase 177 (23-300) U/L Urine Color Yellow Urine Appearance Clear (Clear) Urine pH 5.5 (5.0-8.0) Ur Specific [place] 1.020 (1.001-1.035) Urine Protein Negative (Negative) Urine Glucose (UA) Negative (Negative) Urine Ketones Negative (Negative) Urine Blood Negative (Negative) Urine Nitrite Negative (Negative) Urine Bilirubin Negative (Negative) Urine Urobilinogen <2.0 (<2.0) mg/dL Ur Leukocyte Esterase Negative (Negative) Urine HCG, Qual (Not Detectd) 09/26/19 Range/Units 15:00 WBC (3.8-10.6) k/uL RBC (3.80-5.40) m/uL Hgb (11.4-16.0) gm/dL Hct (34.0-46.0) % MCV (80.0-100.0) fL MCH (25.0-35.0) pg MCHC (31.0-37.0) g/dL RDW (11.5-15.5) % Plt Count (150-450) k/uL Neutrophils % % Lymphocytes % % Monocytes % % Eosinophils % % Basophils % % Neutrophils # (1.3-7.7) k/uL Lymphocytes # (1.0-4.8) k/uL Monocytes # (0-1.0) k/uL Eosinophils # (0-0.7) k/uL Basophils # (0-0.2) k/uL Sodium (137-145) mmol/L Potassium (3.5-5.1) mmol/L Chloride (98-107) mmol/L Carbon Dioxide (22-30) mmol/L Anion Gap mmol/L BUN (7-17) mg/dL Creatinine (0.52-1.04) mg/dL Est GFR (CKD-EPI)AfAm (>60 ml/min/1.73 sqM) Est GFR (CKD-EPI)NonAf (>60 ml/min/1.73 sqM) Glucose (74-99) mg/dL Calcium (8.4-10.2) mg/dL Total Bilirubin (0.2-1.3) mg/dL AST (14-36) U/L ALT (4-34) U/L Alkaline Phosphatase (38-126) U/L Total Protein (6.3-8.2) g/dL Albumin (3.5-5.0) g/dL Amylase (30-110) U/L Lipase (23-300) U/L Urine Color Urine Appearance (Clear) Urine pH (5.0-8.0) Ur Specific [place] (1.001-1.035) Urine Protein (Negative) Urine Glucose (UA) (Negative) Urine Ketones (Negative) Urine Blood (Negative) Urine Nitrite (Negative) Urine Bilirubin (Negative) Urine Urobilinogen (<2.0) mg/dL Ur Leukocyte Esterase (Negative) Urine HCG, Qual Not Detected (Not Detectd) Disposition Clinical Impression: Nausea and vomiting, Cholelithiasis, Teratoma Disposition: HOME SELF-CARE Condition: Good Instructions (If sedation given, give patient instructions): Low Fat Diet (ED), Acute Nausea and Vomiting (ED) Additional Instructions: Please take Zofran as needed for nausea. Please follow-up with surgery for gallstones. Follow-up with your primary care provider for teratoma as well as nausea vomiting. Please go through CAT scan reports at your appointment with your doctor. If you have any worsening symptoms or are not able to keep down any liquids return to the emergency room. Prescriptions: Ondansetron HCl [Zofran] 4 mg PO Q8HR PRN #14 tablet PRN Reason: Nausea Is patient prescribed a controlled substance at d/c from ED?: No Referrals: Harlan Weinberg MD [Primary Care Provider] - 1-2 days Edwige Zelaya MD [STAFF PHYSICIAN] - 1-2 days Time of Disposition: 17:32
[2019-09-26 15:12] LABS: ALT 30 U/L (4-34); AST 29 U/L (14-36); African American GFR (CKD) >90 (>60 ml/min/1.73 sqM); Albumin 3.9 g/dL (3.5-5.0); Alkaline Phosphatase 96 U/L (38-126); Amylase 62 U/L (30-110); Anion Gap 5 mmol/L; Blood Urea Nitrogen 8 mg/dL (7-17); Calcium 9.1 mg/dL (8.4-10.2); Carbon Dioxide 25 mmol/L (22-30); Chloride 108 mmol/L (98-107); Glucose 98 mg/dL (74-99); Non-African American GFR(CKD) >90 (>60 ml/min/1.73 sqM); Potassium 4.1 mmol/L (3.5-5.1); Sodium 138 mmol/L (137-145); Total Bilirubin 0.7 mg/dL (0.2-1.3)
[2019-09-26 15:29] LABS: Appearance,Urine Clear (Clear); Bilirubin,Urine Negative (Negative); Blood,Urine Negative (Negative); Color,Urine Yellow; Glucose,Urine (UA) Negative (Negative); Ketones,Urine Negative (Negative); Leukocyte Esterase,Urine Negative (Negative); Nitrite,Urine Negative (Negative); PH, Urine 5.5 (5.0-8.0); Protein,Urine Negative (Negative); Urobilinogen,Urine <2.0 mg/dL (<2.0)
[2019-09-26] MEDS ORDERED: ONDANSETRON 4 MG/2 ML VIAL IVP STA (15:44)
[2019-09-26] MEDS ORDERED: MAG HYDROX/AL HYDROX/SIMETH 30 ML, HYOSCYAMINE ELIXIR 10 ML, LIDOCAINE VISCOUS 2% 10 ML PO STA ×3 (15:58)
[2019-09-26] MEDS ORDERED: FAMOTIDINE 20 MG/2 ML VIAL IV STA (15:58)
[2019-09-26] MEDS ORDERED: HYDROmorphone 0.5 MG/0.5 ML SYRINGE IVP STA (16:47)
[2019-09-26] MEDS ORDERED: METOCLOPRAMIDE 5 MG/ML 2 ML VIAL IVP STA (16:47)
[2019-09-26 17:14] VITALS: BP 107/68; PULSE 63; TEMP 98
--- NOTE | 2019-09-26 17:20 | US ---
EXAMINATION TYPE: US gallbladder DATE OF EXAM: 09/26/2019 COMPARISON: NONE CLINICAL HISTORY: pain RUQ. Pain, nausea and vomiting gallstones seen on ct scan yesterday.Exam limit ations due to body habitus. EXAM MEASUREMENTS: Liver Length: 16.2 cm Gallbladder Wall: .3 cm CBD: .5 cm Right Kidney: 9.4 x 4.1 x 4.5 cm Pancreas: Obscured by bowel gas Liver: Increased attenuation Gallbladder: Multiple large gallstones seen. No free fluid seen. Evidence for sonographic [place]'s sign: Yes CBD: wnl Right Kidney: wnl IMPRESSION: Multiple large gallstones. No dilated ducts. No focal liver defect.
[2019-09-29 10:09] LABS: Chlamydia trachomatis rRNA Not detected (Not detected); Neisseria gonorrhoeae rRNA Not detected (Not detected)
== END 2019-09-26 17:53 | disposition home or self-care (01) ==
LOC: EC 13:52
DX: K80.20 Calculus of gallbladder without cholecystitis without obstruction (principal); D27.0 Benign neoplasm of right ovary; E66.9 Obesity, unspecified; R19.7 Diarrhea, unspecified; M79.7 Fibromyalgia; Z88.0 Allergy status to penicillin; Z79.891 Long term (current) use of opiate analgesic; Z68.38 Body mass index [BMI] 38.0-38.9, adult
CPT/HCPCS: 36415; 80053; 87591; 87491; 82150; 83690; 85025; 81003; 81025; 76705; 99284; 96374; 96375 ×3; 96361 ×2; J2765; J2405; J1170

== ENCOUNTER → 2020-03-30 | Outpatient (CLI) | payer OTHER ==
--- NOTE | 2020-03-30 12:42 | XR ---
EXAMINATION TYPE: XR hand complete RT DATE OF EXAM: 03/30/2020 COMPARISON: None HISTORY: Injury right thumb and right lateral wrist TECHNIQUE: Three-view right hand FINDINGS: No acute fractures or dislocations are evident. Soft tissues appear unremarkable. Joint spa aleah are preserved. IMPRESSION: 1. No acute osseous abnormality right hand. 2. Follow-up exams can be performed 7-10 days from acute trauma for continued pain.
--- NOTE | 2020-03-30 12:44 | XR ---
EXAMINATION TYPE: XR wrist complete RT DATE OF EXAM: 03/30/2020 COMPARISON: None HISTORY: Pain right thumb right lateral wrist TECHNIQUE: 4 view right wrist FINDINGS: Alignment appears normal. Soft tissues appear normal. It is noted patient is wrapped in an Scar wrap compression. Joint spaces are preserved. There may be some ulnar negative variance. Follow-up exams can be performed 7-10 days from acute trauma for continued pain. Nuclear medicine bon e scan could be performed for pain at the anatomic snuff box. IMPRESSION: 1. Normal 4 view right wrist
== END | disposition home or self-care (01) ==
LOC: RADXRMAIN 11:52
PROVIDERS: ATTEND Emergency Medicine
DX: S63.601A Unspecified sprain of right thumb, initial encounter (principal); S63.591A Other specified sprain of right wrist, initial encounter

== ENCOUNTER → 2020-04-04 | Outpatient (CLI) | payer OTHER | END | disposition home or self-care (01) | LOC: LABWHC1 10:41 | PROVIDERS: ATTEND Emergency Medicine | DX: Z20.828 Contact with and (suspected) exposure to other viral communicable diseases (principal) | CPT/HCPCS: U0003; C9803 ==

== ENCOUNTER → 2020-04-10 | Outpatient (CLI) | payer OTHER ==
--- NOTE | 2020-04-10 17:21 | XR ---
EXAMINATION TYPE: XR wrist complete 4 views RT, XR hand complete 3 views RT DATE OF EXAM: 04/10/2020 COMPARISON: NONE HISTORY: 34-year-old female crushing injury to the radial styloid region. S63.601D, S63.591D FINDINGS: Right wrist: Radiocarpal and distal radioulnar joint as well as the midcarpal compartment are intact. No acute fra cture, subluxation, or dislocation. Right hand: No acute fracture, subluxation, or dislocation. No periostitis or osteolysis. IMPRESSION: Right hand and wrist without acute osseous abnormality seen.
== END | disposition home or self-care (01) ==
LOC: RADXRMAIN 16:14
PROVIDERS: ATTEND Emergency Medicine
DX: S63.601D Unspecified sprain of right thumb, subsequent encounter (principal); S63.591D Other specified sprain of right wrist, subsequent encounter; M25.531 Pain in right wrist; M79.641 Pain in right hand

== ENCOUNTER 2020-04-13 19:06 | Emergency (ER) | payer OTHER ==
[2020-04-13 19:19] VITALS: RESP 18
--- NOTE | 2020-04-13 20:24 | XR ---
PROCEDURE: XR hand complete RT - 3V DATE AND TIME: 04/13/2020 7:40 PM CLINICAL INDICATION: PHH; pain after fall TECHNIQUE: Department protocol COMPARISON: None FINDINGS: There is no fracture or malalignment. The soft tissues are unremarkable. IMPRESSION: NO ACUTE PROCESS.
--- NOTE | 2020-04-13 20:32 | ED ---
Upper Extremity HPI - General Chief Complaint: Extremity Injury, Upper Stated Complaint: I[facility] R Arm Injury Time Seen by Provider: 04/13/20 19:19 Source: patient Mode of arrival: ambulatory Limitations: no limitations - History of Present Illness Initial Comments: 34yo female presentinf for cc of right hand pain. pt currently being treated for tendonitis, states she is starting PT and gong to see orthopedic surgery. Pt states she tripped hitting hand on conveyor belt at [employer] today. was wearing brace but states that pinky hurts now. States she is able to fully move it but it hurts. Denies thumb pain. Denies elbow pain, or head injury. Denies loss of sensation or weakness. patient appears well nontoxic on arrival. - Related Data Home Medications Medication Instructions Recorded Confirmed Hydrocodone/Acetaminophen [[place] 1 tab PO QID 09/26/19 09/26/19 10-325] Ondansetron Odt [Zofran Odt] 12 mg PO Q1H PRN 09/26/19 09/26/19 Previous Rx's Medication Instructions Recorded Ondansetron HCl [Zofran] 4 mg PO Q8HR PRN #14 tablet 09/26/19 Allergies Allergy/AdvReac Type Severity Reaction Status Date / Time Penicillins Allergy Anaphylaxis Verified 04/13/20 19:18 Review of Systems ROS Statement: Those systems with pertinent positive or pertinent negative responses have been documented in the HPI. ROS Other: All systems not noted in ROS Statement are negative. Past Medical History Past Medical History: Asthma, Fibromyalgia Additional Past Medical History / Comment(s): kidney stone History of Any Multi-Drug Resistant Organisms: None Reported Past Surgical History: No Surgical Hx Reported Past Psychological History: ADD/ADHD Past Alcohol Use History: None Reported Past Drug Use History: Marijuana - Past Family History Mother Additional Family Medical History / Comment(s): Kidney stones General Exam - General Exam Comments Initial Comments: General: The patient is awake and alert, in no distress, Eye: +3 mm pupils are equal, round and reactive to light, extra-ocular movements are intact. No nystagmus. There is normal conjunctiva bilaterally. No signs of icterus. Ears, nose, mouth and throat: There are moist mucous membranes and no oral lesions. Neck: The neck is supple, there is no tenderness or JVD. Cardiovascular: There is a regular rate and rhythm. No murmur, rub or gallop is appreciated. Respiratory: Lungs are clear to auscultation, respirations are non-labored, breath sounds are equal. No wheezes, stridor, rales, or rhonchi. Gastrointestinal: Soft, non-distended, non-tender abdomen without masses or organomegaly noted. There is no rebound or guarding present. Musculoskeletal: Normal hand inspection. no swelling no ecchymosis, no snuff chris x tenderness. Normal ROM of MCP PIP and DIp of all joints no limitation pain with 5th digit movement. Strength 5/5. Sensation intact. Radial pulses equal bilaterally 2+. Neurological: A&O x 3. CN II-XII intact grossly, There are no obvious motor or sensory deficits. Coordination appears grossly intact. Speech is normal. Skin: Skin is warm and dry and no rashes or lesions are noted. Psychiatric: Cooperative, appropriate mood & affect, normal judgment. Limitations: no limitations Course Vital Signs 04/13/20 04/13/20 19:15 20:40 Temperature 97.3 F L 98 F Pulse Rate 70 78 Respiratory 18 18 Rate Blood Pressure 127/75 132/72 O2 Sat by Pulse 100 98 Oximetry Medical Decision Making - Medical Decision Making XR (-) splint in place (old). pt is to f/u with pcp, PT, orthopedic and return for any new/concerning symptoms. discharged appearing well. Disposition Clinical Impression: Right hand pain Disposition: HOME SELF-CARE Condition: Good Additional Instructions: Please use medication as discussed. Please follow-up with family doctor in the next 2 days. go to physical therapy and orthopedics as scheduled. Please return to emergency room if the symptoms increase or worsen or for any other concerns. Is patient prescribed a controlled substance at d/c from ED?: No Referrals: Harlan Weinberg MD [Primary Care Provider] - 1-2 days Time of Disposition: 20:31
[2020-04-13 20:41] VITALS: BP 132/72; PULSE 78; TEMP 98
== END 2020-04-13 20:41 | disposition home or self-care (01) ==
LOC: EC 19:06
DX: M79.641 Pain in right hand (principal); M77.9 Enthesopathy, unspecified; Z79.891 Long term (current) use of opiate analgesic; Z88.0 Allergy status to penicillin
CPT/HCPCS: 99283

== ENCOUNTER 2020-05-01 01:52 | Emergency (ER) | payer OTHER ==
[2020-05-01 02:08] VITALS: BP 126/56; RESP 18; TEMP 98
[2020-05-01 02:47] LABS: Appearance,Urine Cloudy (Clear); Bacteria,Urine Moderate /hpf; Bilirubin,Urine Negative (Negative); Blood,Urine Negative (Negative); Color,Urine Yellow; Glucose,Urine (UA) Negative (Negative); Hyaline Casts,Urine 2 /lpf (0-2); Ketones,Urine Negative (Negative); Leukocyte Esterase,Urine Large (Negative); Mucus,Urine Many /hpf; Nitrite,Urine Negative (Negative); Protein,Urine Trace (Negative); RBC,Urine 5 /hpf (0-5); Squamous Epithelial Cell,Urine 14 /hpf (0-4); WBC,Urine 12 /hpf (0-5)
[2020-05-01] MEDS ORDERED: ALBUTEROL NEBULIZED 2.5 MG/3 ML INHALATION STA (02:48)
--- NOTE | 2020-05-01 02:56 | XR ---
EXAM: XR Chest, 2 Views CLINICAL HISTORY: Cough. TECHNIQUE: Frontal and lateral views of the chest. COMPARISON: 04/17/2015. FINDINGS: Lungs: Unremarkable. No consolidation. Pleural space: Unremarkable. No pneumothorax. Heart: Cardiomediastinal silhouette unremarkable. Mediastinum: See above. Bones/joints: Osteopenia. Gentle dextro scoliosis of the thoracic spine. Soft tissues: Soft tissues are unremarkable. Other findings: There is mild hypoaeration. IMPRESSION: 1. Hypoaeration. 2. No active disease.
--- NOTE | 2020-05-01 03:43 | ED ---
URI HPI - General Chief Complaint: Upper Respiratory Infection Stated Complaint: Cough, SOB Time Seen by Provider: 05/01/20 03:42 Source: patient Mode of arrival: ambulatory Limitations: no limitations - History of Present Illness Initial Comments: Jana is a 34-year-old female with a history of asthma who presents the ER today for evaluation of cough, shortness of breath, fever and body aches. Patient was exposed to somebody who had COVID 19 at work over a week ago she developed symptoms on they've been persistent. Tonight she is having shortness of breath her partner was having symptoms including nausea and vomiting which prompted the both come to the ER for evaluation - Related Data Home Medications Medication Instructions Recorded Confirmed Hydrocodone/Acetaminophen [[place] 1 tab PO QID 09/26/19 09/26/19 10-325] Ondansetron Odt [Zofran Odt] 12 mg PO Q1H PRN 09/26/19 09/26/19 Previous Rx's Medication Instructions Recorded Ondansetron HCl [Zofran] 4 mg PO Q8HR PRN #14 tablet 09/26/19 Ondansetron [Zofran ODT] 4 mg PO Q8HR #12 tab 05/01/20 predniSONE [Deltasone] 40 mg PO DAILY 5 Days #10 tab 05/01/20 Allergies Allergy/AdvReac Type Severity Reaction Status Date / Time Penicillins Allergy Anaphylaxis Verified 05/01/20 02:08 Review of Systems ROS Statement: Those systems with pertinent positive or pertinent negative responses have been documented in the HPI. ROS Other: All systems not noted in ROS Statement are negative. Past Medical History Past Medical History: Asthma, Fibromyalgia Additional Past Medical History / Comment(s): kidney stone History of Any Multi-Drug Resistant Organisms: None Reported Past Surgical History: No Surgical Hx Reported Past Psychological History: ADD/ADHD Smoking Status: Never smoker Past Alcohol Use History: None Reported Past Drug Use History: Marijuana - Past Family History Mother Additional Family Medical History / Comment(s): Kidney stones General Exam - General Exam Comments Initial Comments: Exam was performed by Sae JACKSON Physical Exam GENERAL: Patient is well-developed and well-nourished. Patient is nontoxic and well-hydrated and is in no distress. HENT: Normocephalic, Atraumatic. EYES: PERRL, EOMI PULMONARY: No distress Expiratory wheezing CARDIOVASCULAR: RRR Warm and well perfused extremities ABDOMEN: Non-distended SKIN: No rashes or bruising : Deferred NEUROLOGIC: Alert and oriented Normal speech Normal gait MUSCULOSKELETAL: Moving all extremities with no apparent injury PSYCHIATRIC: No SI/HI Limitations: no limitations Course Vital Signs 05/01/20 05/01/20 05/01/20 02:05 02:15 03:22 Temperature 98 F Pulse Rate 81 96 Respiratory 18 18 Rate Blood Pressure 126/56 O2 Sat by Pulse 100 Oximetry 05/01/20 03:30 Temperature Pulse Rate 97 Respiratory Rate Blood Pressure O2 Sat by Pulse Oximetry Medical Decision Making - Medical Decision Making patient was seen and evaluated history is obtained from the patient Vital signs are stable Patient's history and physical are concerning for COVID 19 Chest x-ray is unremarkable COVID swab was negative however was only a nasal swab not nasopharyngeal and I suspect that the false negative given the patient's symptoms Pulse were discussed with patient, advised the patient 14 as though she is COVID 19 patient agreeable to this plan and will be provided a work note Close return parameters were discussed patient was discharged home in stable condition - Lab Data Lab Results 05/01/20 05/01/20 Range/Units 02:29 02:30 Urine Color Yellow Urine Appearance Cloudy H (Clear) Urine pH 6.0 (5.0-8.0) Ur Specific [place] 1.030 (1.001-1.035) Urine Protein Trace H (Negative) Urine Glucose (UA) Negative (Negative) Urine Ketones Negative (Negative) Urine Blood Negative (Negative) Urine Nitrite Negative (Negative) Urine Bilirubin Negative (Negative) Urine Urobilinogen 2.0 (<2.0) mg/dL Ur Leukocyte Esterase Large H (Negative) Urine RBC 5 (0-5) /hpf Urine WBC 12 H (0-5) /hpf Ur Squamous Epith Cells 14 H (0-4) /hpf Urine Bacteria Moderate H (None) /hpf Hyaline Casts 2 (0-2) /lpf Urine Mucus Many H (None) /hpf Coronavirus (PCR) Not Detected (Not Detectd) Disposition Clinical Impression: Exposure to COVID-19 virus Disposition: HOME SELF-CARE Condition: Stable Additional Instructions: Coronavirus (COVID-19) Discharge Instructions You were diagnosed with the novel Coronavirus, known as COVID-19. It is a viral illness that can cause fever, cough and trouble breathing. Some people may have chills, muscle aches, runny nose, sneezing, sore throat, upset stomach or loose stool. When do I need to call the doctor? Call your doctor if your breathing is getting worse (harder or faster than before or you feel like you are getting less air). Some people start to feel worse in the second week of their illness, if you start to feel worse at any time in your illness, please call your doctor, who will tell you where to go to be seen. If you can, put on a facemask before leaving home or before you enter the clinic or hospital. Get medical attention right away if you develop emergency warning signs of COVID-19 such as: trouble breathing, chest pain or pressure that does not go away, new confusion or not able to wake up, bluish lips or face. Precautions at home The virus is spread easily through tiny droplets when you cough or sneeze. You should take these steps to help prevent the disease from spreading to people in your home and community 1. Self-isolate at home As advised by the Centers for Disease Control and Prevention (CDC), we ask you to stay in your home and limit contact with others to avoid spreading this virus. Stay home except to go to the doctor Do not go to work, school, or public areas, except for getting medical care. Avoid using public transportation (such as buses), ride-sharing, or taxis. If you have an upcoming doctor appointment, call the office and tell them that you have COVID-19. Separate yourself from other people and animals in your home. Avoid touching other people, including handshaking. As much as you can, stay in a specific room and away from other people in your home. You should also use a separate bathroom, if available. Avoid sharing personal household items. You should not share dishes, drinking glasses, cups, eating utensils, towels, toothpaste, or bedding with other people or pets in your home. After using these items, they should be washed well with soap and water. Do not handle pets or other animals while sick. 2. Clean and disinfect Clean all high-touch surfaces every day. High-touch surfaces include counters, tabletops, doorknobs, bathroom fixtures, toilets, phones, keyboards, tablets, and bedside tables. Clean any surfaces that may have blood, stool, or body fluids on them. Use a household cleaning spray or wipe, according to the label instructions. Labels contain instructions for safe and effective use of the cleaning product including precautions you should take when applying the product, such as wearing gloves and making sure you have good air flow in the room during use of the product. Wash laundry. Remove and wash clothes or bedding that have blood, stool, or body fluids on them and then wash your hands right away 3. Help stop the spread Clean your hands often. Wash your hands with soap and water for at least 20 seconds. OR Use an alcohol-based hand ceramic engineer that contains at least 60% alcohol, covering all surfaces of your hands and rubbing them together until they feel dry. Wash your hands after blowing your nose, coughing, or sneezing; going to the bathroom, and before eating or preparing food. Avoid touching your eyes, nose, and mouth with unwashed hands. Cover your coughs and sneezes. Cover your mouth and nose with a tissue when you cough or sneeze. Throw used tissues in a lined trash can; clean your hands right away. Wear a facemask You should wear a facemask when you are around other people (e.g., sharing a room or vehicle) or pets and before you enter a healthcare providers office. 4. Notify your close contacts People that you live with should self-isolate for 14 days AFTER your self-isola tion period ends. Other close contacts such as caretakers and intimate partners should self- isolate for 14 days AFTER your last contact with them. Your close contacts should self-monitor for symptoms by checking their temperature twice a day and watching for fever, cough, or shortness of breath. They should contact their doctor if they develop symptoms of COVID-19. They should also clean hands often and avoid touching eyes, nose, and mouth with unwashed hands. They should wear a mask if they have to be in the same room as you if you are not able to wear one. When can I stop precautions at home? Your doctor will tell you which criteria to follow below (Symptom-based criteria) You can stop isolating yourself when both of these things have happened: You have had no fever for at least 24 hours (that is one full day of no fever without the use of medicine that reduces fevers) AND Other symptoms have improved (for example, when your cough or shortness of breath have improved) AND At least 10 days have passed since your symptoms first started. OR (Time-based criteria) You can stop isolating yourself when both of these things have happened: You never develop symptoms of COVID19 AND At least 10 days have passed since your first started positive test OR (Extended Symptom-based criteria for severe illness) You can stop isolating yourself when both of these things have happened: You have had no fever for at least 24 hours (that is one full day of no fever without the use of medicine that reduces fevers) AND Other symptoms have improved (for example, when your cough or shortness of breath have improved) AND At least 20 days have passed since your symptoms first started. (Extended Time-based criteria for severe immunocompromised) You can stop isolating yourself when both of these things have happened: You never develop symptoms of COVID19 AND At least 20 days have passed since your first positive test OR (Test-based criteria) You can stop isolating yourself when both of these things have happened: You have had no fever for at least 24 hours (that is one full day of no fever without the use of medicine that reduces fevers) AND Other symptoms have improved (for example, when your cough or shortness of breath have improved) AND You have two negative repeat tests for COVID19 Manage your stress and anxiety Being ill can be stressful or cause anxiety. Remember that everyone reacts differently to stressful situations. Being ill with COVID-19 might be especially stressful because it is a new disease and there is a lot of news coverage. Take breaks from watching, reading, or listening to news stories, including social media. People with preexisting mental conditions should continue their treatment and be aware of new or worsening symptoms. If you, or someone you care about, are feeling overwhelmed with emotions like sadness, depression, or anxiety, call the Sub[facility] Abuse [facility] Mental [facility] Services [facility] ([facility]) Disaster Distress Helpline: [place] [address]. (TTY ) Prescriptions: predniSONE [Deltasone] 40 mg PO DAILY 5 Days #10 tab Ondansetron [Zofran ODT] 4 mg PO Q8HR #12 tab Is patient prescribed a controlled substance at d/c from ED?: No Referrals: Harlan Weinberg MD [Primary Care Provider] - 1-2 days
[2020-05-01] MEDS ORDERED: ONDANSETRON 4 MG/2 ML VIAL IVP STA (03:48)
[2020-05-01] MEDS ORDERED: SODIUM CHLORIDE 0.9% 1,000 ML IV STA (03:49)
[2020-05-01 04:42] VITALS: PULSE 98
== END 2020-05-01 04:10 | disposition home or self-care (01) ==
LOC: EC 01:52
DX: R06.02 Shortness of breath (principal); R05 Cough; R50.9 Fever, unspecified; R52 Pain, unspecified; Z88.0 Allergy status to penicillin; Z20.828 Contact with and (suspected) exposure to other viral communicable diseases
CPT/HCPCS: 71046; 81001; 87635; 94640; 99285

== ENCOUNTER 2020-05-01 15:09 | Emergency (ER) | payer OTHER ==
[2020-05-01] MEDS ORDERED: diphenhydrAMINE 50 MG/ML 1 ML VIAL IVP STA (16:09)
[2020-05-01] MEDS ORDERED: SODIUM CHLORIDE 0.9% 500 ML 500 ML IV STA (16:09)
[2020-05-01] MEDS ORDERED: METOCLOPRAMIDE 5 MG/ML 2 ML VIAL IVP STA (16:09)
[2020-05-01] MEDS ORDERED: SODIUM CHLORIDE 0.9% 1,000 ML IV STA (16:09)
[2020-05-01] MEDS ORDERED: KETOROLAC 15 MG/ML 1 ML VIAL IVP STA (16:10)
--- NOTE | 2020-05-01 16:36 | ED ---
General Adult HPI - General Chief complaint: Shortness of Breath Stated complaint: + covid sob/vomiting Time Seen by Provider: 05/01/20 15:56 Source: patient, family, RN notes reviewed Mode of arrival: wheelchair Limitations: no limitations - History of Present Illness Initial comments: this a 34-year-old female presents emergency Department chief complaint fever cough congestion nausea vomiting. Patient states symptoms started yesterday was seen in emergency department yesterday had a urinalysis and Covid test which was negative. Patient states that she's had increasing vomiting. She states she occasionally has coughing fits what causes her feel short of breath , she does not have resting shortness of breath. Denies any localized abdominal pain. Patient denies any chance . Patient denies headache, dizziness, neck pain. Patient took acetaminophen prior arrival. - Related Data Home Medications Medication Instructions Recorded Confirmed Hydrocodone/Acetaminophen [[place] 1 tab PO QID 09/26/19 09/26/19 10-325] Ondansetron Odt [Zofran Odt] 12 mg PO Q1H PRN 09/26/19 09/26/19 Previous Rx's Medication Instructions Recorded Ondansetron HCl [Zofran] 4 mg PO Q8HR PRN #14 tablet 09/26/19 Ondansetron [Zofran ODT] 4 mg PO Q8HR #12 tab 05/01/20 Promethazine [Phenergan] 25 mg PO Q6HR #14 tablet 05/01/20 predniSONE [Deltasone] 40 mg PO DAILY 5 Days #10 tab 05/01/20 Allergies Allergy/AdvReac Type Severity Reaction Status Date / Time Penicillins Allergy Anaphylaxis Verified 05/01/20 02:08 Review of Systems ROS Statement: Those systems with pertinent positive or pertinent negative responses have been documented in the HPI. ROS Other: All systems not noted in ROS Statement are negative. Past Medical History Past Medical History: Asthma, Fibromyalgia Additional Past Medical History / Comment(s): kidney stone History of Any Multi-Drug Resistant Organisms: None Reported Past Surgical History: No Surgical Hx Reported Past Psychological History: ADD/ADHD Smoking Status: Never smoker Past Alcohol Use History: None Reported Past Drug Use History: Marijuana - Past Family History Mother Additional Family Medical History / Comment(s): Kidney stones General Exam Limitations: no limitations General appearance: alert, in no apparent distress Head exam: Present: atraumatic, normocephalic, normal inspection Eye exam: Present: normal appearance, PERRL, EOMI. Absent: scleral icterus, conjunctival injection, periorbital swelling ENT exam: Present: normal exam, normal oropharynx, mucous membranes moist Neck exam: Present: normal inspection, full ROM. Absent: tenderness, meningismus, lymphadenopathy Respiratory exam: Present: normal lung sounds bilaterally. Absent: respiratory distress, wheezes, rales, rhonchi, stridor Cardiovascular Exam: Present: regular rate, normal rhythm, normal heart sounds. Absent: systolic murmur, diastolic murmur, rubs, gallop, clicks GI/Abdominal exam: Present: soft, normal bowel sounds. Absent: distended, tenderness, guarding, rebound, rigid Neurological exam: Present: alert, oriented X3, CN II-XII intact Skin exam: Present: warm, dry, intact, normal color. Absent: rash Course Vital Signs 05/01/20 05/01/20 05/01/20 15:14 18:17 18:20 Temperature 100.3 F H 99.1 F Pulse Rate 73 74 Respiratory 18 18 18 Rate Blood Pressure 140/83 125/63 O2 Sat by Pulse 95 98 Oximetry - Reevaluation(s) Reevaluation #1: 05/01/20 18:43 patient reevaluated, resting comfortably no sign distress states she feels greatly improved. Medical Decision Making - Medical Decision Making labs, chest x-ray unremarkable. Patient had negative Coronavirus testing yesterday. Patient has a viral URI with nausea vomiting she has a known contact with similar symptoms. Patient will be discharged with antiemetics return parameters were discussed. - Lab Data Result diagrams: 05/01/20 17:49 05/01/20 17:49 Lab Results 05/01/20 05/01/20 05/01/20 Range/Units 17:49 17:49 17:49 WBC 7.7 (3.8-10.6) k/uL RBC 4.09 (3.80-5.40) m/uL Hgb 13.2 (11.4-16.0) gm/dL Hct 40.1 (34.0-46.0) % MCV 98.2 (80.0-100.0) fL MCH 32.4 (25.0-35.0) pg MCHC 33.0 (31.0-37.0) g/dL RDW 11.8 (11.5-15.5) % Plt Count 249 (150-450) k/uL Neutrophils % 58 % Lymphocytes % 29 % Monocytes % 5 % Eosinophils % 5 % Basophils % 1 % Neutrophils # 4.5 (1.3-7.7) k/uL Lymphocytes # 2.2 (1.0-4.8) k/uL Monocytes # 0.4 (0-1.0) k/uL Eosinophils # 0.4 (0-0.7) k/uL Basophils # 0.1 (0-0.2) k/uL Sodium 139 (137-145) mmol/L Potassium 4.1 (3.5-5.1) mmol/L Chloride 111 H (98-107) mmol/L Carbon Dioxide 22 (22-30) mmol/L Anion Gap 6 mmol/L BUN 8 (7-17) mg/dL Creatinine 0.70 (0.52-1.04) mg/dL Est GFR (CKD-EPI)AfAm >90 (>60 ml/min/1.73 sqM) Est GFR (CKD-EPI)NonAf >90 (>60 ml/min/1.73 sqM) Glucose 89 (74-99) mg/dL Calcium 9.3 (8.4-10.2) mg/dL Total Bilirubin 0.9 (0.2-1.3) mg/dL AST 19 (14-36) U/L ALT 21 (4-34) U/L Alkaline Phosphatase 71 (38-126) U/L Total Protein 6.6 (6.3-8.2) g/dL Albumin 3.7 (3.5-5.0) g/dL Lipase 58 (23-300) U/L Urine Color Yellow Urine Appearance Clear (Clear) Urine pH 5.5 (5.0-8.0) Ur Specific [place] 1.026 (1.001-1.035) Urine Protein Negative (Negative) Urine Glucose (UA) Negative (Negative) Urine Ketones Negative (Negative) Urine Blood Negative (Negative) Urine Nitrite Negative (Negative) Urine Bilirubin Negative (Negative) Urine Urobilinogen <2.0 (<2.0) mg/dL Ur Leukocyte Esterase Small H (Negative) Urine RBC 1 (0-5) /hpf Urine WBC 2 (0-5) /hpf Ur Squamous Epith Cells 3 (0-4) /hpf Urine Bacteria Occasional H (None) /hpf Hyaline Casts 1 (0-2) /lpf Urine Mucus Moderate H (None) /hpf Disposition Clinical Impression: Respiratory infection, Nausea & vomiting Disposition: HOME SELF-CARE Condition: Stable Instructions (If sedation given, give patient instructions): Acute Nausea and Vomiting (ED) Additional Instructions: Please return to the Emergency Department if symptoms worsen or any other jose g rns. Prescriptions: Promethazine [Phenergan] 25 mg PO Q6HR #14 tablet Is patient prescribed a controlled substance at d/c from ED?: No Referrals: Harlan Weinberg MD [Primary Care Provider] - 1-2 days Time of Disposition: 18:45
[2020-05-01 18:03] LABS: Basophils # (A) 0.1 k/uL (0-0.2); Basophils % (A) 1 %; Eosinophils # (A) 0.4 k/uL (0-0.7); Eosinophils % (A) 5 %; HCT 40.1 % (34.0-46.0); HGB 13.2 gm/dL (11.4-16.0); Lymphocytes # (A) 2.2 k/uL (1.0-4.8); Lymphocytes % (A) 29 %; MCH 32.4 pg (25.0-35.0); MCV 98.2 fL (80.0-100.0); Mean Platelet Volume 7.7; Monocytes # (A) 0.4 k/uL (0-1.0); Monocytes % (A) 5 %; Neutrophils # (A) 4.5 k/uL (1.3-7.7); Neutrophils % (A) 58 %; Platelet Count 249 k/uL (150-450); RBC 4.09 m/uL (3.80-5.40); RDW 11.8 % (11.5-15.5); WBC 7.7 k/uL (3.8-10.6)
[2020-05-01 18:04] LABS: Appearance,Urine Clear (Clear); Bacteria,Urine Occasional /hpf; Bilirubin,Urine Negative (Negative); Blood,Urine Negative (Negative); Color,Urine Yellow; Glucose,Urine (UA) Negative (Negative); Hyaline Casts,Urine 1 /lpf (0-2); Ketones,Urine Negative (Negative); Leukocyte Esterase,Urine Small (Negative); Mucus,Urine Moderate /hpf; Nitrite,Urine Negative (Negative); PH, Urine 5.5 (5.0-8.0); Protein,Urine Negative (Negative); RBC,Urine 1 /hpf (0-5); Specific Gravity,Urine 1.026 (1.001-1.035); Squamous Epithelial Cell,Urine 3 /hpf (0-4); Urobilinogen,Urine <2.0 mg/dL (<2.0); WBC,Urine 2 /hpf (0-5)
[2020-05-01 18:13] LABS: ALT 21 U/L (4-34); AST 19 U/L (14-36); African American GFR (CKD) >90 (>60 ml/min/1.73 sqM); Albumin 3.7 g/dL (3.5-5.0); Alkaline Phosphatase 71 U/L (38-126); Anion Gap 6 mmol/L; Blood Urea Nitrogen 8 mg/dL (7-17); Calcium 9.3 mg/dL (8.4-10.2); Carbon Dioxide 22 mmol/L (22-30); Chloride 111 mmol/L (98-107); Glucose 89 mg/dL (74-99); Lipase 58 U/L (23-300); Non-African American GFR(CKD) >90 (>60 ml/min/1.73 sqM); Potassium 4.1 mmol/L (3.5-5.1); Sodium 139 mmol/L (137-145); Total Bilirubin 0.9 mg/dL (0.2-1.3); Total Protein 6.6 g/dL (6.3-8.2)
[2020-05-01 18:18] VITALS: PULSE 74
--- NOTE | 2020-05-01 18:38 | XR ---
EXAMINATION TYPE: XR chest 2V DATE OF EXAM: 05/01/2020 COMPARISON: Today HISTORY: Short of breath TECHNIQUE: FINDINGS: Heart and mediastinum are normal. Lungs are clear. Diaphragm is normal. Bony thorax appears normal. IMPRESSION: Normal chest. No change.
[2020-05-01 19:52] VITALS: BP 115/72; RESP 16; TEMP 99
== END 2020-05-01 19:52 | disposition home or self-care (01) ==
LOC: EC 15:09
DX: J98.8 Other specified respiratory disorders (principal); R11.2 Nausea with vomiting, unspecified; Z88.0 Allergy status to penicillin; Z20.828 Contact with and (suspected) exposure to other viral communicable diseases
CPT/HCPCS: 36415; 80053; 83690; 85025; 81001; 71046; 99285; 96374; 96375 ×2; 96361 ×2; J1200; J2765; J1885

== ENCOUNTER 2020-10-03 21:56 | Emergency (ER) | payer OTHER ==
[2020-10-03] MEDS ORDERED: IBUPROFEN 600 MG TAB PO STA (22:38)
[2020-10-03] MEDS ORDERED: ACETAMINOPHEN TAB 325 MG TAB PO STA (22:38)
--- NOTE | 2020-10-03 23:51 | ED ---
General Adult HPI - General Chief complaint: Fever Stated complaint: N/V Time Seen by Provider: 10/03/20 22:15 Source: patient Mode of arrival: ambulatory Limitations: no limitations - History of Present Illness Initial comments: Patient is a 35-year-old female with history of asthma, presenting to emergency Department with complaints of fever, body aches for the last 2 days. She also notes a mild cough, some mild congestion. No chest pain or shortness of breath. She states she has been taking Tylenol and Motrin for fever, last dose was 2 hours prior to arrival. She denies any nausea or vomiting, no diarrhea, no abdominal pain. She has no further complaints. Her vitals are stable upon arrival. - Related Data Home Medications Medication Instructions Recorded Confirmed Hydrocodone/Acetaminophen [[place] 1 tab PO QID 09/26/19 09/26/19 10-325] Ondansetron Odt [Zofran Odt] 12 mg PO Q1H PRN 09/26/19 09/26/19 Previous Rx's Medication Instructions Recorded Ondansetron HCl [Zofran] 4 mg PO Q8HR PRN #14 tablet 09/26/19 Ondansetron [Zofran ODT] 4 mg PO Q8HR #12 tab 05/01/20 Promethazine [Phenergan] 25 mg PO Q6HR #14 tablet 05/01/20 predniSONE [Deltasone] 40 mg PO DAILY 5 Days #10 tab 05/01/20 Dexamethasone [Decadron] 6 mg PO DAILY 5 Days #5 tablet 10/04/20 Allergies Allergy/AdvReac Type Severity Reaction Status Date / Time Penicillins Allergy Anaphylaxis Verified 10/03/20 22:10 Review of Systems ROS Statement: Those systems with pertinent positive or pertinent negative responses have been documented in the HPI. ROS Other: All systems not noted in ROS Statement are negative. Past Medical History Past Medical History: Asthma, Fibromyalgia Additional Past Medical History / Comment(s): kidney stone History of Any Multi-Drug Resistant Organisms: None Reported Past Surgical History: No Surgical Hx Reported Past Psychological History: ADD/ADHD Smoking Status: Never smoker Past Alcohol Use History: None Reported Past Drug Use History: Marijuana - Past Family History Mother Additional Family Medical History / Comment(s): Kidney stones General Exam - General Exam Comments Initial Comments: GENERAL: Patient is well-developed and well-nourished. Patient is nontoxic and in no acute distress. HEAD: Atraumatic, normocephalic. EYES: Pupils equal round and reactive to light, extraocular movements intact, sclera anicteric, conjunctiva are normal. Eyelids were unremarkable. ENT: TMs normal, nares patent, oropharynx clear without exudates. Moist mucous membranes. NECK: Normal range of motion, supple without lymphadenopathy or JVD. LUNGS: Unlabored respirations. Breath sounds clear to auscultation bilaterally and equal. No wheezes rales or rhonchi. HEART: Regular rate and rhythm without murmurs, rubs or gallops. ABDOMEN: Soft, nontender, normoactive bowel sounds. No guarding, no rebound. No masses appreciated. : Deferred MUSCULOSKELETAL: Normal extremities with adequate strength and normal range of motion, no pitting or edema. No clubbing or cyanosis. NEUROLOGICAL: Patient is alert and oriented x 3. Motor and sensory are also intact. Cranial nerves II through XII grossly intact. Symmetrical smile. Normal speech, normal gait. PSYCH: Normal mood, normal affect. SKIN: Warm, Dry, normal turgor, no rashes or lesions noted. Limitations: no limitations Course Vital Signs 10/03/20 10/03/20 22:04 23:56 Temperature 99.6 F 98.7 F Pulse Rate 96 77 Respiratory 20 18 Rate Blood Pressure 126/85 95/65 O2 Sat by Pulse 98 97 Oximetry Medical Decision Making - Medical Decision Making Patient is a 35-year-old female here with cold-like symptoms for the past 2 days. Her vitals are stable upon arrival. Exam is unremarkable. Patient's rapid Covid test is positive. Patient does meet qualifications for BAM infusion. He was given infusion, no adverse side effects. Her vital signs remained stable, 97% on room air, afebrile. Patient is stable for discharge. I recommended starting the steroids for symptomatically control, continue Tylenol Motrin for any discomfort or fevers. She is in agreement with this plan of care. Return parameters were discussed with her and she verbalized understanding. Case discussed with Dr. Falcon. - Lab Data Lab Results 10/03/20 Range/Units 22:11 Coronavirus (PCR) Detected A (Not Detectd) Disposition Clinical Impression: COVID-19 Disposition: HOME SELF-CARE Condition: Stable Instructions (If sedation given, give patient instructions): Coronavirus Disease 2019 (COVID-19) Additional Instructions: Please return to the Emergency Department if symptoms worsen or any other concerns. Take steroids as prescribed. Continue with Tylenol or Motrin for fever control, body aches. Increase your fluid intake. Follow-up with PCP. Prescriptions: Dexamethasone [Decadron] 6 mg PO DAILY 5 Days #5 tablet Is patient prescribed a controlled substance at d/c from ED?: No Referrals: Harlan Weinberg MD [Primary Care Provider] - 1-2 days
[2020-10-03 23:56] VITALS: RESP 18
[2020-10-04] MEDS ORDERED: BAMLANIVIMAB (EUA) 700 MG, ETESEVIMAB (EUA) 1,400 MG in SODIUM CHLORIDE 0.9% 50 ML IVPB ONE ×3
[2020-10-04 01:16] VITALS: BP 105/68; PULSE 66; TEMP 98.3
== END 2020-10-04 01:20 | disposition home or self-care (01) ==
LOC: EC 21:56
DX: U07.1 COVID-19 (principal); J45.909 Unspecified asthma, uncomplicated; F12.90 Cannabis use, unspecified, uncomplicated; Z88.0 Allergy status to penicillin
CPT/HCPCS: 99283; 96365; 87635; Q0245

== ENCOUNTER 2024-03-29 12:46 | Emergency (ER) | payer OTHER ==
[2024-03-29 12:50] VITALS: RESP 20
[2024-03-29] MEDS: HYDROcodone/APAP 5-325MG 1 EACH TAB PO STA (14:25)
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
--- NOTE | 2024-03-29 14:52 | XR ---
EXAMINATION TYPE: XR hand complete RT DATE OF EXAM: 03/29/2024 CLINICAL HISTORY: pain TECHNIQUE: Frontal, lateral and oblique images of the right hand are obtained. COMPARISON: None. FINDINGS: Cortical fracture involving the head of the second metatarsal ulnar aspect. No additional f racture seen. The joint spaces appear within normal limits. The overlying soft tissue appears unrema rkable. IMPRESSION: As above [facility], , 03/29/2024 2:50 PM
[2024-03-29 15:41] VITALS: BP 110/68; PULSE 76; TEMP 98
== END 2024-03-29 15:40 | disposition home or self-care (01) ==
LOC: EC 12:46
CPT/HCPCS: 29125; 99283